=== PATIENT | male | born 1985 | race African-American/Black ===

== ENCOUNTER 2018-06-03 14:41 | Emergency (ER) | payer OTHER ==
[~2018-06-03] VITALS: Wt 77.2 kg
--- NOTE | 2018-06-03 20:29 | ERD ---
ER Documentation Chief Complaint Chief Complaint lower lip lac p getting elbowed playing basketball. no active bleed. HPI This is a 33-year-old male presents to emerge department with complaints of lower lip laceration. Stated this happened around 12:30 PM today while playing basketball when 1 of his playmates accidentally hit his lower lip by elbow. Denies headache, head injury, loss of consciousness, dizziness, neck pain, neck stiffness, throat pain, difficulty swallowing, difficulty breathing lying flat, shoulder pain, chest pain, back pain, abdominal pain, nausea, vomiting, constipation, diarrhea, urinary symptoms, loss of bowel and bladder control, difficulty walking due to pain, numbness or tingling sensation, calf pain, recent travel, recent major surgery in the last 3 weeks, calf pain, recent long travel, recent exposure to any illness, recent antibiotic use in the last 3 months, fever, chills, seizures. Past medical history: Surgical history: Social: Denies smoking, use of alcoholic beverages, use of illegal drugs. ROS All systems reviewed and are negative except as per history of present illness. Medications Home Meds Active Scripts Tramadol HCl (Tramadol HCl) 50 Mg Tablet, 50 MG PO Q4 PRN for SEVERE PAIN LEVEL 7-10, #5 TAB Prov:FATMATA BECERRILAR F 06/03/18 Ibuprofen* (Motrin*) 800 Mg Tab, 800 MG PO Q6H PRN for PAIN AND OR ELEVATED TEMP, #30 TAB Prov:JOHANAILABANFATMATAAR F 06/03/18 Allergies Allergies: Coded Allergies: No Known Allergy (Unverified , 06/03/18) PMhx/Soc Medical and Surgical Hx: pt denies Medical Hx, pt denies Surgical Hx Hx Alcohol Use: No Hx Substance Use: No Hx Tobacco Use: No Smoking Status: Never smoker Physical Exam Vitals Vital Signs Date Temp Pulse Resp B/P (MAP) Pulse Ox O2 O2 Flow FiO2 Time Delivery Rate 06/03/18 98.2 55 20 120/64 99 Room Air 21:38 (82) 06/03/18 98.0 56 16 117/65 98 15:23 (82) Physical Exam Const: No acute distress Head: Atraumatic Eyes: Normal Conjunctiva ENT: Normal External Ears, Nose and Mouth. Throat/lips: Lower lip laceration measuring approximately 1.2 cm in length. No signs of tooth avulsions. No signs of tongue laceration. Bilateral jaw: Good and full range of motion without tenderness/discoloration. Neck: Full range of motion. No meningismus. C-spine is in midline with good and full range of motion and is no swelling/tenderness/bulging. Resp: Clear to auscultation bilaterally Cardio: Regular rate and rhythm, no murmurs Abd: Soft, non tender, non distended. Normal bowel sounds Skin: No petechiae or rashes Back: No midline or flank tenderness Ext: No cyanosis, or edema Neur: Awake and alert. No neurological deficits. Psych: Normal Mood and Affect Results 24 hrs Current Medications Medications Dose Sig/Dereck Start Time Status Last (Trade) Ordered Route PRN Stop Time Admin Dose Reason Admin Lidocaine 20 ml ONCE ONCE 06/03/18 DC (Xylocaine SC 20:30 1% (Mdv) 20 06/03/18 20:31 ml) 1 tab ONCE ONCE 06/03/18 DC 06/03/18 Acetaminophen PO 20:30 20:55 / 06/03/18 20:31 Hydrocodone Bitart ([place] (5/325)) Procedures/MDM Diagnostic tests: Clinical exam. Treatment: [place] p.o. Procedure: Laceration repair. Secured verbal consent from the patient. Betadine prep. Lidocaine 1% 1 cc subcu. Vicryl 4-0 x 4 simple interrupted suture. Re-evaluation: No active bleeding. Differential diagnosis I have low suspicion for C-spine fracture, [place], septal hematoma, concussion. Final diagnosis: Lip laceration. Prescription: Motrin. Tramadol. Follow-up with PCP in the next 24-48 hours. Come back in 2 days for wound check. Come back here in the emergency department for any new symptoms or any worsening symptoms. All questions and concerns were answered. Patient and family members verbalized understanding and agreed with plan of care. Hemodynamically stable on discharge. Departure Diagnosis: Primary Impression: Lip laceration Condition: Stable Additional Instructions: Follow-up with PCP in the next 24-48 hours. Come back in 2 days for wound check. Come back here in the emergency department for any new symptoms or any worsening symptoms. GIACOMO BECERRIL Jun 03, 2018 20:29
[2018-06-03] MEDS ORDERED: HYDROCODONE/APAP (5/325) TAB PO ONE (20:30)
[2018-06-03] MEDS ORDERED: LIDOCAINE 1% (MDV) 20 ML INJ SC ONE (20:30)
[2018-06-03] MEDS ORDERED: IBUP800T48 PO (21:06)
[2018-06-03] MEDS ORDERED: TRAM50TA2 PO (21:07)
[2018-06-03 21:38] VITALS: BP 120/64; PULSE 55; RESP 20
== END 2018-06-03 21:39 | disposition home or self-care (01) ==
LOC: FTE 14:41
DX: S01.511A Laceration without foreign body of lip, initial encounter (principal); W22.8XXA Striking against or struck by other objects, initial encounter; Y92.310 Basketball court as the place of occurrence of the external cause
CPT/HCPCS: 12001; Z7502; Z7610